=== PATIENT | male | born 1960 | race African-American/Black ===

== ENCOUNTER 2016-10-01 09:23 | Emergency (ER) ==
[2016-10-01 09:36] VITALS: BP 154/87
[2016-10-01] MEDS ORDERED: MOTRIN PO ONE (09:52)
--- NOTE | 2016-10-01 09:54 | PROVIDER DOCUMENTATION ---
HPI-Musculoskeletal Pain/Inj - GENERAL Chief Complaint: Work Related Injury Stated Complaint: WORK RELATED INJURY Time Seen by Provider: 10/01/16 09:39 Source: patient - HX OF PRESENT ILLNESS-MUSKULOSKELTAL Nature of Presenting Problem: This pt presents today c complaints of crush injury to the left 4th digit after slipping while holding some heavy equipment at work. His ring was bent and he is unable to remove it from the finger. No loss of motor function or sensation. Quality of Pain: reports: aching, tightness Severity in ED: moderate Onset/Duration: just prior to arrival Timing: still present Modifying Factors: improves with: movement, palpation Any recent injury?: Yes Locality of Occurance: Work Similar Symptoms Previously?: No Recently seen or treated by another doctor?: No Review of Systems - Adult - REVIEW OF SYSTEMS - ADULT Constitutional: reports: no symptoms reported. denies: chills, fever Eyes: reports: no symptoms reported. denies: discharge, dry eyes Ears, Nose, Mouth & Throat: reports: no symptoms reported. denies: ear discharge, ear pain Cardiovascular: reports: no symptoms reported. denies: chest pain, edema Respiratory: reports: no symptoms reported. denies: chronic cough, cough Gastrointestinal: reports: no symptoms reported. denies: abdominal pain, hematemesis Genitourinary: reports: no symptoms reported. denies: dysuria, discharge Musculoskeletal: reports: see HPI, joint pain, joint swelling. denies: bone pain, back pain Integumentary: reports: no symptoms reported. denies: hives, hair loss Neurological: reports: no symptoms reported. denies: ataxia, dizziness/vertigo Psychiatric: reports: no symptoms reported. denies: anxiety, anti-depressant use Endocrine: reports: no symptoms reported Hematologic/Lymphatic: reports: no symptoms reported Allergic/Immunologic: reports: no symptoms reported All Other Systems: Reviewed and Negative Past History - Adult - PAST MEDICAL HISTORY-ADULT Review of Records: reports: Old Records Reviewed, Nursing Assessment Review, Medications Reviewed, Social history reviewed & non-contributory. Major Childhood Illnesses: reports: denies history Cardiovascular: reports: HTN Respiratory: reports: asthma, COPD Gastrointestinal: reports: denies history Obstetrical/Gynecological: reports: denies history Genitourinary: reports: denies history Musculoskeletal: reports: denies history Neurological: reports: denies history Endocrine/Immune: reports: Diabetes Other Conditions: reports: denies history - PRIOR SURGERIES/PROCEDURES Surgical/Procedure History: reports: none - PRIOR HOSPITALIZATIONS Prior Hospitalizations: reports: none - IMMUNIZATION STATUS Childhood Immunizations: See Nurse Assessment Flu Vaccine: See Nurse Assessment - FAMILY HISTORY Family History: reviewed, not pertinent Physical Exam-Injury Related - Physical Exam-Injury Related Initial Vital Signs Reviewed: Yes General Appearance: appears well, alert, no apparent distress Eyes: PERRL/EOMI, pink conjunctivae Head, Ears, Nose, Mouth & Throat: normocephalic/atraumatic, normal ENT inspection, TMs normal, pharynx normal Neck: non-tender, full range of motion, supple, normal inspection Respiratory: chest non-tender, lungs clear, normal breath sounds, no pleuratic chest pain, no respiratory distress, no accessory muscle use Cardiovascular: normal peripheral pulses, regular rate, rhythm, no edema, no gallop, no JVD, no murmur Abdominal Exam: normal bowel sounds, non tender, soft, no organomegaly, no pulsatile mass Lymphatic: no adenopathy Back Exam: normal inspection, no CVA tenderness, no vertebral tenderness Extremity: normal gait, no pedal edema, no calf tenderness, normal capillary refill, pelvis stable, swelling, tenderness. 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, no motor/sensory deficits Psych/Mental Status: AL, normal mood/affect, normal thought content, normal thought process, oriented x 3 Progress - PLAN OF CARE/RESULTS Progress/Plan/Lab Results: Orders Category Date Time Status Finger Splint DIRECTED Care 10/01/16 10:03 Active HAND COMPLETE LEFT [RAD] Stat Exams 10/01/16 09:52 Taken Ibuprofen [Motrin] Med 10/01/16 09:52 Discontinued 400 mg PO NOW ONE Vital Signs Temp Pulse Resp BP Pulse Ox 10/01/16 09:35 97.8 F 89 18 154/87 100 No Known Allergies Allergy (Verified 10/01/16 09:48) Albuterol [Albuterol Neb] 2.5 mg INH Q4H PRN PRN 02/03/15 Fluticasone/Salmet 100/50 INH [Advair 100/50 Diskus] 1 puff INH PRN PRN 05/13/ 15 LISINOpril [Prinivil] 20 mg PO DAILY 02/03/15 Metformin [Glucophage] 500 mg PO TID 02/03/15 Diphenoxylate/Atropine [Lomotil] 1 each PO 4XDAY PRN PRN #20 tablet 03/03/16 Ondansetron [Zofran Odt] 8 mg PO Q8H PRN #20 tab.rapdis 03/03/16 Ring was removed c ring cutter. Will have pt f/u c orthopedics. Orders Category Date Time Status Finger Splint DIRECTED Care 10/01/16 10:03 Active HAND COMPLETE LEFT [RAD] Stat Exams 10/01/16 09:52 Taken [facility] URINE DRUG SCREEN Stat Lab 10/01/16 10:06 Uncollected Ibuprofen [Motrin] Med 10/01/16 09:52 Discontinued 400 mg PO NOW ONE - XRAY 1 XRAY: Left XRAY Study: Hand XRAY Interpretation: proximal 4th digit fx Departure - Departure Time of Disposition Order: 10:06 DIAGNOSIS: Finger fracture, left, Tight ring on finger Disposition: HOME 01 Certified Medical Emergency: Emergent Condition: Good Additional Instructions: Take medication as prescribed. Follow up with an orthopedist and [facility]. Return to the ER for any new or worsening symptoms. ED Follow Up Instructions: You have been treated by a care provider in the Emergency Department. These instructions are being provided to you so you can have an understanding of how to care for yourself upon discharge. Upon discharge from the Emergency Department, you are responsible for making arrangements for follow-up care by a physician of your choice. Take all prescribed medications as directed. Return to the Emergency Department immediately for any new or worsening symptoms. You may call the Physician Referral phone number at [phone] to obtain a list of Physicians who are taking new patients. Prescriptions: Hydrocodone/APAP 7.5 mg/325 mg [Cortez-7.5] 1 each PO Q6H PRN PRN #12 tablet PRN Reason: Pain Ondansetron HCl [Zofran] 4 mg PO Q4H PRN PRN #12 tablet PRN Reason: Nausea Referrals: None,PCP [Primary Care Provider] - Luis Enrique Fox MD [STAFF PHYSICIAN] - Attestation - Physician/ Mid-level Attestation Patient care was provided by Mid-level provider (RETAIL LOAN OFFICER/PA):: Yes Mid-level provider:: Olegario Yadav Mid-level documentation review:: The Mid-level provider documentation, treatment plan and medical decision making was reviewed by the physician who agrees with all treatment and medical decision making by the MLP.
--- NOTE | 2016-10-01 13:52 | Diag Imaging Result Document ---
PROCEDURE NAME: HAND COMPLETE LEFT - 10/01/2016 PLAIN RADIOGRAPH OF THE LEFT HAND, 3 VIEWS: COMPARISON: None available. FINDINGS: There is a nondisplaced fracture involving the shaft of the proximal phalanx of the 4th finger. No other discrete fracture, dislocation, or intrinsic osseous lesion is appreciated. IMPRESSION: Fracture of the proximal phalanx of the 4th finger as described.
== END 2016-10-01 10:31 | disposition home or self-care (01) ==
LOC: ED 09:23
DX: S62.645A Nondisplaced fracture of proximal phalanx of left ring finger, initial encounter for closed fracture (principal); S60.455A Superficial foreign body of left ring finger, initial encounter; M79.645 Pain in left finger(s); M25.442 Effusion, left hand; I10 Essential (primary) hypertension; J44.9 Chronic obstructive pulmonary disease, unspecified; E11.9 Type 2 diabetes mellitus without complications; W00.0XXA Fall on same level due to ice and snow, initial encounter
CPT/HCPCS: 99283